=== PATIENT | female | born 1960 | race African-American/Black ===

== ENCOUNTER 2018-04-30 20:50 | Emergency (ER) | payer BC ==
[2018-04-30] MEDS ORDERED: Dexamethasone 10 MG/ML VIAL ONE (22:00)
--- NOTE | 2018-04-30 22:23 | RAD ---
PA AND LATERAL CHEST X-RAY: 04/30/2018 HISTORY: Cough. COMPARISON: 06/21/2012 FINDINGS: Surgical clips again overly the left lower neck. The cardiac silhouette is at the upper limits of no rmal in size. The pulmonary vasculature is within normal limits. Vascular calcifications are seen i n the thoracic aorta. There is linear atelectasis versus scarring in the region of the lingula. The lungs are otherwise clear. Degenerative changes are again seen in the spine, and there is prominent right convex scoliosis again present. IMPRESSION: No acute cardiopulmonary process. POS: [facility]
== END 2018-04-30 22:53 | disposition home or self-care (01) ==
LOC: SCSER 20:50
DX: J06.9 Acute upper respiratory infection, unspecified (principal); I10 Essential (primary) hypertension; Z87.891 Personal history of nicotine dependence; Z79.899 Other long term (current) drug therapy; E66.9 Obesity, unspecified
CPT/HCPCS: 71046; 87804; J1100

== ENCOUNTER 2019-05-15 09:39 | Emergency (ER) | payer BC ==
[2019-05-15] MEDS ORDERED: Mag-Al 1200 mg/1200 mg/30 ML UDCUP ONE (10:37)
[2019-05-15] MEDS ORDERED: Aspirin Chewable 81 MG TAB ONE (10:37)
[2019-05-15] MEDS ORDERED: Lidocaine Viscous Sol 2% 15 ml UD Cup ONE (10:37)
--- NOTE | 2019-05-15 10:37 | RAD ---
XR Chest 1 View Portable History: Chest pain Comparison: Radiograph April 30, 2018 Findings: Mild dextro scoliosis thoracic spine. No pneumothorax. Left neck surgical clips. No confluent airspace consolidation or pneumothorax. Heart size is normal. Impression: No acute intrathoracic abnormality.
[2019-05-15 10:48] LABS: #Basophils 0.1 thou/uL (0.0-0.2); #Eosinphils 0.2 thou/uL (0.0-0.7); #Lymphocytes 2.6 thou/uL (1.20-3.40); #Monocytes 0.6 thou/uL (0.11-0.59); #Neutrophils 4.1 thou/uL (1.40-6.50); %Basophils 1.4 % (0.0-1.0); %Eosinophils 2.1 % (0.0-10.0); %Lymphocytes 34.6 % (21.0-51.0); %Monocytes 7.4 % (0.0-10.0); %Neutrophils 54.5 % (42.0-75.0); Hemoglobin 12.4 g/dL (12.0-16.0); Mean Corpuscular Hemoglobin 28.5 pg (27.0-31.0); Mean Corpuscular Volume 83.9 fL (78.0-98.0); Mean Platelet Volume 8.4 fL (7.4-10.4); Platelet Count 244 thou/uL (130-400); RBC Distribution Width 13.3 % (11.5-14.5); Red Blood Cell (RBC) Count 4.36 mill/uL (4.20-5.40); White Blood Cell (WBC) Count 7.5 thou/uL (4.8-10.8)
[2019-05-15 11:18] LABS: ALT (SGPT) 11 U/L (8-55); AST (SGOT) 11 U/L (5-34); Albumin 4.1 g/dL (3.5-5.0); Alkaline Phosphatase 146 U/L (40-110); Anion Gap 12 mmol/L (10-20); BUN (Urea Nitrogen) 14 mg/dL (9.8-20.1); Bilirubin, Total 0.5 mg/dL (0.2-1.2); CK (CPK) 60 U/L (29-168); Calc. Creatinine Clearance 0 mL/min (70-130); Calcium 9.8 mg/dL (7.8-10.44); Carbon Dioxide 31 mmol/L (22-29); Chloride 100 mmol/L (98-107); Estimated GFR-MDRD 66; Globulin 3.4 g/dL (2.4-3.5); Glucose 154 mg/dL (70-105); Lipase 16 U/L (8-78); Potassium 3.7 mmol/L (3.5-5.1); Protein, Total 7.5 g/dL (6.0-8.3); Sodium 139 mmol/L (136-145)
== END 2019-05-15 13:35 | disposition home or self-care (01) ==
LOC: ERS 09:39
DX: R07.9 Chest pain, unspecified (principal); I10 Essential (primary) hypertension; Z87.891 Personal history of nicotine dependence
CPT/HCPCS: 36415; 71045; 80053; 82550; 83690; 83880; 84484; 85025; 93005

== ENCOUNTER 2020-05-29 15:22 | Emergency (ER) | payer BC ==
[2020-05-29 21:35] LABS: SARS-CoV-2 MS2 Positive; SARS-CoV-2 N Gene Positive; SARS-CoV-2 S Gene Positive; SARS-CoV-2 by NAA DETECTED (NotDetected); SARS-CoV-2 orf1ab Positive
== END 2020-05-29 15:40 | disposition home or self-care (01) ==
LOC: ERS 15:22
DX: R53.83 Other fatigue (principal); R50.9 Fever, unspecified; Z20.828 Contact with and (suspected) exposure to other viral communicable diseases; I10 Essential (primary) hypertension; E66.9 Obesity, unspecified; Z87.891 Personal history of nicotine dependence; Z79.899 Other long term (current) drug therapy
CPT/HCPCS: 87635; 99283; U0003

== ENCOUNTER 2020-10-16 14:30 | Outpatient (CLI) | payer BC | END 2020-10-16 14:31 | disposition home or self-care (01) | LOC: BICRAD 14:30 | PROVIDERS: ATTEND Family Medicine | DX: M51.26 Other intervertebral disc displacement, lumbar region (principal); M47.816 Spondylosis without myelopathy or radiculopathy, lumbar region; M25.551 Pain in right hip; M25.552 Pain in left hip; M16.0 Bilateral primary osteoarthritis of hip | CPT/HCPCS: 72100 ==

== ENCOUNTER 2022-09-02 23:35 | Emergency (ER) | payer BC, SELFPAY ==
[2022-09-02 23:59] LABS: #Basophils 0.1 thou/uL (0.0-0.2); #Eosinphils 0.1 thou/uL (0.0-0.7); #Monocytes 0.6 thou/uL (0.11-0.59); #Neutrophils 4.8 thou/uL (1.40-6.50); %Basophils 1.3 % (0.0-1.0); %Eosinophils 1.2 % (0.0-10.0); %Lymphocytes 34.7 % (21.0-51.0); %Monocytes 7.2 % (0.0-10.0); %Neutrophils 55.5 % (42.0-75.0); Hemoglobin 12.2 g/dL (12.0-16.0); Mean Corpuscular HGB CONC 34.1 g/dL (32.0-36.0); Mean Corpuscular Hemoglobin 29.6 pg (27.0-31.0); Mean Corpuscular Volume 86.9 fl (78.0-98.0); Mean Platelet Volume 8.5 fL (7.4-10.4); Platelet Count 245 10x3/uL (130-400); RBC Distribution Width 12.9 % (11.5-14.5); Red Blood Cell (RBC) Count 4.13 mill/uL (4.20-5.40); White Blood Cell (WBC) Count 8.6 10x3/uL (4.8-10.8)
[2022-09-03 00:21] LABS: ALT (SGPT) 8 U/L (8-55); AST (SGOT) 11 U/L (5-34); Alkaline Phosphatase 120 U/L (40-110); Anion Gap 13 mmol/L (10-20); BUN (Urea Nitrogen) 14 mg/dL (9.8-20.1); Bilirubin, Total 0.4 mg/dL (0.2-1.2); Calc. Creatinine Clearance 0 mL/min (70-130); Calcium 9.3 mg/dL (7.8-10.44); Carbon Dioxide 27 mmol/L (23-31); Chloride 103 mmol/L (98-107); Estimated GFR 74; Globulin 3.6 g/dL (2.4-3.5); Glucose 142 mg/dL (80-115); Potassium 3.6 mmol/L (3.5-5.1); Protein, Total 7.6 g/dL (5.8-8.1); Sodium 139 mmol/L (136-145)
[2022-09-03] MEDS ORDERED: Meclizine HCl 25 MG TAB ONE (01:30)
== END 2022-09-03 02:05 | disposition home or self-care (01) ==
LOC: ERS 23:35
DX: R42 Dizziness and giddiness (principal); I10 Essential (primary) hypertension; E11.9 Type 2 diabetes mellitus without complications; E66.9 Obesity, unspecified; Z87.891 Personal history of nicotine dependence; Z79.84 Long term (current) use of oral hypoglycemic drugs; Z79.899 Other long term (current) drug therapy
CPT/HCPCS: 36415; 70450; 71045; 80053; 83880; 84484; 85025; 93005

== ENCOUNTER 2022-09-04 09:33 | Emergency (ER) | payer OTHER, SELFPAY ==
[2022-09-04 10:04] LABS: #Eosinphils 0.1 thou/uL (0.0-0.7); #Lymphocytes 2.4 thou/uL (1.20-3.40); #Monocytes 0.5 thou/uL (0.11-0.59); #Neutrophils 3.3 thou/uL (1.40-6.50); %Basophils 0.7 % (0.0-1.0); %Eosinophils 2.3 % (0.0-10.0); %Lymphocytes 38.1 % (21.0-51.0); %Monocytes 7.8 % (0.0-10.0); %Neutrophils 51.1 % (42.0-75.0); Hemoglobin 12.4 g/dL (12.0-16.0); Mean Corpuscular HGB CONC 32.8 g/dL (32.0-36.0); Mean Corpuscular Hemoglobin 28.5 pg (27.0-31.0); Mean Corpuscular Volume 86.9 fl (78.0-98.0); Mean Platelet Volume 8.4 fL (7.4-10.4); Platelet Count 242 10x3/uL (130-400); Red Blood Cell (RBC) Count 4.35 mill/uL (4.20-5.40); White Blood Cell (WBC) Count 6.4 10x3/uL (4.8-10.8)
[2022-09-04] MEDS ORDERED: diphenhydrAMINE 50 MG/ML VIAL ONE (10:11)
[2022-09-04] MEDS ORDERED: methylPREDNISolone Sod Succ/PF 125 MG/2 ML VIAL ONE (10:11)
[2022-09-04 10:18] LABS: Calcium 9.1 mg/dL (7.8-10.44); Chloride 104 mmol/L (98-107); Sodium 139 mmol/L (136-145)
[2022-09-04 10:19] LABS: Globulin 3.6 g/dL (2.4-3.5); Glucose 141 mg/dL (80-115); Protein, Total 7.6 g/dL (5.8-8.1)
[2022-09-04 10:20] LABS: Anion Gap 14 mmol/L (10-20); Carbon Dioxide 25 mmol/L (23-31)
[2022-09-04 10:21] LABS: Bilirubin, Total 0.6 mg/dL (0.2-1.2); Prothrombin Time 13.1 sec (12.0-14.7)
[2022-09-04 10:21] LABS: Alcohol Less than 10 mg/dL (Less than 10)
[2022-09-04 10:22] LABS: Alkaline Phosphatase 119 U/L (40-110); Calc. Creatinine Clearance 0 mL/min (70-130); Estimated GFR 62; PTT 28.8 sec (22.9-36.1)
[2022-09-04 10:24] LABS: Acetaminophen Less than 10.0 mcg/mL (10.0-30.0); Salicylate Less than 8.0 mg/dL (15.0-30.0)
[2022-09-04 10:27] LABS: ALT (SGPT) 9 U/L (8-55); AST (SGOT) 12 U/L (5-34); BUN (Urea Nitrogen) 16 mg/dL (9.8-20.1); CK (CPK) 41 U/L (29-168)
[2022-09-04] MEDS ORDERED: Iopamidol-370 76% 500 ML 1 ML ONE (10:42)
[2022-09-04 12:26] LABS: Bacteria/HPF None Seen HPF (None Seen); Bilirubin Negative (Negative); Blood, Urine Negative (Negative); Clarity Clear (Clear); Glucose, Urine (Dipstick) Normal (Negative); Ketone, Urine Negative (Negative); Leukocyte 75 Leu/uL (Negative); Nitrite Negative (Negative); Protein, Urine (Dipstick) Negative (Neg-Trace); RBC/HPF 0-3 HPF (0-3); Specific Gravity, Urine 1.027 (1.002-1.036); Squamous Epithelial 0-3 HPF (0-3); Urobilinogen Normal mg/dL (Less than 2); WBC/HPF 0-3 HPF (0-3); pH, Urine 5.5 (5.0-9.0)
[2022-09-04 12:34] LABS: Amphetamine Not Detected (NotDetected); Barbiturates Screen Not Detected (NotDetected); Benzodiazepine Screen Not Detected (NotDetected); Cocaine Metabolite Screen Not Detected (NotDetected); Methadone Not Detected (NotDetected); Methamphetamine Not Detected (NotDetected); Opiate Screen Detected (NotDetected); Oxycodone Screen Not Detected (NotDetected); Phencyclidine (PCP) Not Detected (NotDetected); THC/Cannabinoid Screen Not Detected (NotDetected); Tricyclic Screen Not Detected (NotDetected)
[2022-09-04] MEDS ORDERED: Prochlorperazine 10 MG/2 ML VIAL ONE (13:42)
== END 2022-09-04 15:28 | disposition home or self-care (01) ==
LOC: ERS 09:33
DX: R42 Dizziness and giddiness (principal); E66.9 Obesity, unspecified; E11.9 Type 2 diabetes mellitus without complications; I10 Essential (primary) hypertension; Z87.891 Personal history of nicotine dependence; Z79.84 Long term (current) use of oral hypoglycemic drugs
CPT/HCPCS: 36415; 36416; 70450; 70496; 70498; 71045; 80306; 80307; 81003; 81015; 82550; 84443; 84484; 85610; 85730; 93005; 96374; 96375; J0780; J1200; J2930; Q9967